=== PATIENT | female | born 1940 | race Caucasian/White ===

== ENCOUNTER 2017-12-16 10:07 | Outpatient (REF) | payer MEDICARE, SELFPAY ==
[2017-12-16 21:31] LABS: Cholesterol 199 mg/dL (50-200); HDL Cholesterol 68 mg/dL (40-60); LDL CHOLESTEROL 115 mg/dL (<100); TSH 1.18 uIU/mL (0.358-3.74); Triglyceride 137 mg/dL (30-150)
[2017-12-16 21:45] LABS: HCT 43.5 % (36.0-46.0); HGB 14.5 g/dL (12.0-15.5); Mean Corp. HGB Concentration 33.3 g/dL (32.0-36.0); Mean Corpuscular Hemoglobin 33.2 pg (27.0-33.0); Mean Corpuscular Volume 99.5 fL (80-95); Mean Platelet Volume 10.9 fL (8.0-11.0); Platelet Count 296 x1000/uL (130-400); RBC 4.37 m/cumm (4.00-5.20); White Blood Cell Count 7.21 k/cumm (4.4-10.8)
[2017-12-16 22:26] LABS: Hemoglobin A1C 5.4 % (4.5-6.2)
== END 2017-12-16 10:27 ==
LOC: NCHCN 10:07
PROVIDERS: PCP Nurse Practitioner Family; Visit Provider Nurse Practitioner Family
DX: D50.9 Iron deficiency anemia, unspecified (principal); R73.03 Prediabetes; Z13.220 Encounter for screening for lipoid disorders; E66.3 Overweight
CPT/HCPCS: 80061; 83721; 85027; 83036; 84443

== ENCOUNTER 2018-06-15 10:49 | Outpatient (REF) | payer MEDICARE, SELFPAY ==
[2018-06-15 21:20] LABS: HCT 43.8 % (36.0-46.0); HGB 14.2 g/dL (12.0-15.5); Mean Corp. HGB Concentration 32.4 g/dL (32.0-36.0); Mean Corpuscular Hemoglobin 32.1 pg (27.0-33.0); Mean Corpuscular Volume 99.1 fL (80-95); Mean Platelet Volume 11.2 fL (8.0-11.0); Platelet Count 290 x1000/uL (130-400); RBC 4.42 m/cumm (4.00-5.20); RBC Distribution Width 13.5 % (11.7-14.6); White Blood Cell Count 8.08 k/cumm (4.4-10.8)
[2018-06-15 21:30] LABS: Cholesterol 201 mg/dL (50-200); HDL Cholesterol 66 mg/dL (40-60); LDL CHOLESTEROL 112 mg/dL (<100); Triglyceride 132 mg/dL (30-150)
[2018-06-15 22:29] LABS: Hemoglobin A1C 5.5 % (4.5-6.2)
== END 2018-06-15 11:09 ==
LOC: NCHCN 10:49
PROVIDERS: PCP Nurse Practitioner Family; Visit Provider Nurse Practitioner Family
DX: R73.03 Prediabetes (principal); D50.9 Iron deficiency anemia, unspecified; E66.3 Overweight
CPT/HCPCS: 80061; 83721; 85027; 83036

== ENCOUNTER 2018-12-14 12:26 | Outpatient (REF) | payer MEDICARE, SELFPAY ==
[2018-12-14 21:35] LABS: HCT 41.6 % (36.0-46.0); HGB 13.4 g/dL (12.0-15.5); Mean Corp. HGB Concentration 32.2 g/dL (32.0-36.0); Mean Corpuscular Hemoglobin 32.8 pg (27.0-33.0); Mean Corpuscular Volume 101.7 fL (80-95); Platelet Count 314 x1000/uL (130-400); RBC 4.09 m/cumm (4.00-5.20); RBC Distribution Width 13.7 % (11.7-14.6); White Blood Cell Count 8.97 k/cumm (4.4-10.8)
[2018-12-14 21:50] LABS: Hemoglobin A1C 5.4 % (4.5-6.2)
[2018-12-14 22:08] LABS: Anion Gap 9.8 mmol/L (3-11); BUN 16 mg/dL (7-18); CO2 29.2 mmol/L (21.0-32.0); CREATININE 0.82 mg/dL (0.55-1.02); Calcium 9.2 mg/dL (8.5-10.1); Calculated LDL 118 mg/dL; Chloride 101 mmol/L (98-107); Cholesterol 213 mg/dL (50-200); Glucose 83 mg/dL (70-100); HDL Cholesterol 79 mg/dL (40-60); Potassium 3.9 mmol/L (3.5-5.1); Sodium 140 mmol/L (136-145); TSH 9.47 uIU/mL (0.36-3.74); Triglyceride 80 mg/dL (30-150)
== END 2018-12-14 12:46 ==
LOC: NCHCN 12:26
PROVIDERS: PCP Nurse Practitioner Family; Visit Provider Nurse Practitioner Family
DX: E03.9 Hypothyroidism, unspecified (principal); R73.03 Prediabetes; R03.0 Elevated blood-pressure reading, without diagnosis of hypertension; K21.9 Gastro-esophageal reflux disease without esophagitis; E78.5 Hyperlipidemia, unspecified; Z86.2 Personal history of diseases of the blood and blood-forming organs and certain disorders involving the immune mechanism
CPT/HCPCS: 80048; 80061; 85027; 83036; 84443

== ENCOUNTER 2019-03-09 12:20 | Outpatient (REF) | payer MEDICARE, SELFPAY ==
[2019-03-09 23:02] LABS: TSH (W/Ref FT4) 3.15 uIU/mL (0.36-3.74)
== END 2019-03-09 12:40 ==
LOC: NCHCN 12:20
PROVIDERS: PCP Nurse Practitioner Family; Visit Provider Nurse Practitioner Family
DX: E03.9 Hypothyroidism, unspecified (principal)
CPT/HCPCS: 84443

== ENCOUNTER 2020-08-30 19:45 | Outpatient (REF) | payer MEDICARE, SELFPAY ==
[2020-08-30 19:30] LABS: TSH 0.59 uIU/mL (0.36-3.74)
== END 2020-08-30 19:46 | disposition home or self-care (01) ==
LOC: NCHCN 19:45
PROVIDERS: PCP Nurse Practitioner Family; Visit Provider Nurse Practitioner Family
DX: E03.9 Hypothyroidism, unspecified (principal)
CPT/HCPCS: 84443

== ENCOUNTER 2022-09-19 17:26 | Outpatient (REF) | payer MEDICARE, SELFPAY ==
[2022-09-19 16:38] LABS: HCT 40.8 % (36.0-46.0); HGB 13.4 g/dL (11.2-15.7); MCH 31.6 pg (27.0-33.0); MCHC 32.8 % (32.0-36.0); MCV 96 fL (80-95); MPV 10.8 fL (8.0-11.0); Platelet Count 335 10^3/uL (130-400); RBC 4.24 10^6/uL (3.93-5.22); RDW 13.1 % (11.7-14.6); RDW-SD 46.5 fL; WBC 8.06 10^3/uL (4.4-10.8)
[2022-09-19 17:15] LABS: Anion Gap 7.5 mmol/L (3-11); BUN 17 mg/dL (7-18); CO2 26.5 mmol/L (21.0-32.0); CREATININE 0.9 mg/dL (0.55-1.02); Calcium 8.8 mg/dL (8.5-10.1); Chloride 107 mmol/L (98-107); Estimated GFR 64.63 (mL/min/1.73m2); Glucose 89 mg/dL (74-106); Potassium 3.8 mmol/L (3.5-5.1); Sodium 141 mmol/L (136-145); TSH (W/Ref FT4) 1.25 uIU/mL (0.36-3.74)
[2022-09-19 17:17] LABS: Hemoglobin A1C 5.3 % (<5.7)
== END 2022-09-19 17:27 | disposition home or self-care (01) ==
LOC: NCHCN 17:26
PROVIDERS: PCP Nurse Practitioner Family; Visit Provider Nurse Practitioner Family
DX: R73.03 Prediabetes (principal); E03.9 Hypothyroidism, unspecified; R03.0 Elevated blood-pressure reading, without diagnosis of hypertension
CPT/HCPCS: 80048; 85027; 83036; 84443

== ENCOUNTER 2025-02-08 15:15 | Outpatient (REF) | payer MEDICARE, SELFPAY ==
[2025-02-08 14:43] LABS: HCT 37.5 % (36.0-46.0); HGB 12.2 g/dL (11.2-15.7); MCH 32.2 pg (27.0-33.0); MCHC 32.5 % (32.0-36.0); MCV 99 fL (80-95); MPV 10.8 fL (8.0-11.0); Platelet Count 309 10^3/uL (130-400); RBC 3.79 10^6/uL (3.93-5.22); RDW 12.4 % (11.7-14.6); RDW-SD 45.1 fL; WBC 7.61 10^3/uL (4.4-10.8)
[2025-02-08 15:06] LABS: Hemoglobin A1C 5.2 % (<5.7)
[2025-02-08 15:12] LABS: Anion Gap 8.5 mmol/L (3-11); BUN 18 mg/dL (9-23); CO2 24.5 mmol/L (20.0-31.0); Calcium 9.2 mg/dL (8.3-10.6); Chloride 108 mmol/L (98-107); Cholesterol 167 mg/dL (<200); Glucose 92 mg/dL (74-106); HDL Cholesterol 64 mg/dL (>40); Potassium 4.5 mmol/L (3.5-5.1); Sodium 141 mmol/L (136-145)
[2025-02-08 15:16] LABS: TSH 2.35 uIU/mL (0.55-4.78)
== END 2025-02-08 15:16 | disposition home or self-care (01) ==
LOC: NCHCN 15:15
PROVIDERS: PCP Nurse Practitioner Family; Visit Provider Nurse Practitioner Family
DX: E78.5 Hyperlipidemia, unspecified (principal); I10 Essential (primary) hypertension; E03.9 Hypothyroidism, unspecified; Z86.2 Personal history of diseases of the blood and blood-forming organs and certain disorders involving the immune mechanism; R73.03 Prediabetes
CPT/HCPCS: 80048; 80061; 85027; 83036; 84443